=== PATIENT | male | born 1965 | race Caucasian/White ===

== ENCOUNTER 2017-11-15 06:45 | Inpatient (IN) | payer MEDICAID ==
[~2017-11-15] VITALS: Ht 182.8 cm; Wt 151.1 kg
[2017-11-15] VITALS (8 sets, daily range): BP systolic 105–172; BP diastolic 58–103
--- NOTE | ~2017-11-15 | EKG ---
[place], [place] ELECTROCARDIOGRAM REPORT NAME: PERLITA TEJEDA UNIT #: [id number] ROOM: 415 DOCTOR: LEATHA DRAFT REPORT BIRTHDATE: [birth year] [facility] Test Date: 2017-11-17 Test Time: 04:18:18 Pat Name: PERLITA TEJEDA Department: Room: 415 2 Gender: M Ux Lead: Desi Cunningham : 1965 Requested By: MICHEL MURRAY Order Number: [id number] Reading MD: Tye Cortez MD Measurements Intervals [place] Rate: 98 P: 66 TX: 145 QRS: 81 QRSD: 140 T: 39 QT: 360 QTc: 460 Interpretive Statements Sinus rhythm Right bundle branch block Compared to ECG 11/15/2017 07:53:58 Sinus tachycardia no longer present Left posterior fascicular block no longer present Electronically Signed On 11-17-2017 19:54:41 PDT by Tye Cortez MD CM:EKGRPT:ELECTROCARDIOGRAM REPORT [id number] MICHEL CHIN DRAFT REPORT MICHEL MURRAY DO
--- NOTE | ~2017-11-15 | EKG ---
[place], [place] ELECTROCARDIOGRAM REPORT NAME: PERLITA TEJEDA UNIT #: [id number] ROOM: 415 DOCTOR: LEATHA DRAFT REPORT BIRTHDATE: [birth year] [facility] Test Date: 2017-11-15 Test Time: 07:53:58 Pat Name: PERLITA TEJEDA Department: Room: 415 Gender: M Surgical Asst: : 1965 Requested By: MELVIN ROBERTS Order Number: [id number] Reading MD: Ruby Barrett MD Measurements Intervals [place] Rate: 103 P: 77 NE: 145 QRS: 92 QRSD: 149 T: 28 QT: 352 QTc: 461 Interpretive Statements Sinus tachycardia RBBB and LPFB Lateral infarct, acute Baseline wander in lead(s) V4,V5 Electronically Signed On 11-16-2017 10:45:56 PDT by Ruby Barrett MD CM:EKGRPT:ELECTROCARDIOGRAM REPORT [id number] MELVIN CHIN DRAFT REPORT MELVIN ROBERTS DO
[2017-11-15 07:43] LABS: BASO # 0.1 10*3/uL (0.0-0.1); BASO % 0.5 % (0.0-1.0); EOS # 0.2 10*3/uL (0.0-0.4); EOS % 0.9 % (1.0-4.0); HEMATOCRIT 53.3 % (42.0-52.0); HEMOGLOBIN 17.4 g/dl (14.0-18.0); LYMPH # 3.5 10*3/uL (1.3-4.4); LYMPH % 20.3 % (27.0-41.0); MEAN CELL VOLUME 91.1 fl (80.0-94.0); MEAN CORPUSCULAR HGB 29.7 pg (27.0-31.0); MEAN CORPUSCULAR HGB CONC 32.6 g/dl (33.0-37.0); MEAN PLATELET VOLUME 9.6 fl (9.6-12.3); MONO # 1.1 10*3/uL (0.1-1.0); MONO % 6.2 % (3.0-9.0); NEUT # 12.3 10*3/uL (2.3-7.9); NEUT % 71.7 % (47.0-73.0); PLATELET COUNT AUTOMATED 288 10*3/uL (130-400); RED BLOOD COUNT 5.85 10*6/uL (4.50-5.90); RED CELL DISTRI WIDTH 12.9 % (0-14.5); WHITE BLOOD COUNT 17.2 10*3/uL (4.8-10.8)
[2017-11-15 07:51] LABS: ACT PARTIAL THROMBO TIME 22.8 SECONDS (20.8-31.5)
[2017-11-15 07:59] LABS: ALKALINE PHOSPHATASE 112 U/L (45-117); BUN 14 mg/dl (7-24); CHLORIDE 107 mmol/L (98-107); CREATININE 1.02 mg/dL (0.70-1.30); LIPASE 95 U/L (73-393); POTASSIUM 3.9 mmol/L (3.5-5.1); SGOT/AST 11 IU/L (3-35); SGPT/ALT 22 U/L (12-78); SODIUM 142 mmol/L (136-145); TOTAL PROTEIN 8.6 gm/dL (6.4-8.2)
[2017-11-15 08:00] LABS: TROPONIN I < 0.015 ng/ml (<0.045)
[2017-11-15] MEDS ORDERED: ALEVE220 MG PO (09:32)
[2017-11-16] VITALS: BP 147/74
[2017-11-16 06:11] LABS: BASO % 0.1 % (0.0-1.0); LYMPH # 1.5 10*3/uL (1.3-4.4); LYMPH % 8.3 % (27.0-41.0); MEAN CELL VOLUME 90.7 fl (80.0-94.0); MEAN CORPUSCULAR HGB 29.1 pg (27.0-31.0); MONO # 0.8 10*3/uL (0.1-1.0); MONO % 4.4 % (3.0-9.0); NEUT # 15.6 10*3/uL (2.3-7.9); NEUT % 86.5 % (47.0-73.0); PLATELET COUNT AUTOMATED 255 10*3/uL (130-400); RED BLOOD COUNT 4.85 10*6/uL (4.50-5.90); RED CELL DISTRI WIDTH 13.1 % (0-14.5)
[2017-11-16 06:18] LABS: HEMOGLOBIN 14.1 g/dl (14.0-18.0)
[2017-11-16 06:44] LABS: ALBUMIN 3.2 gm/dl (3.1-4.5); ALKALINE PHOSPHATASE 88 U/L (45-117); BUN 13 mg/dl (7-24); CHLORIDE 108 mmol/L (98-107); POTASSIUM 3.9 mmol/L (3.5-5.1); SODIUM 141 mmol/L (136-145)
[2017-11-16 06:51] LABS: CHOLESTEROL 181 mg/dL (<200); CREATININE 0.82 mg/dL (0.70-1.30); FREE T4 0.83 ng/dl (0.76-1.46); HDL CHOLESTEROL 35 mg/dl (40-60); LDL CHOLESTEROL 133 mg/dL (9-159); PHOSPHOROUS 2.6 mg/dL (2.5-4.9); SGOT/AST 6 IU/L (3-35); SGPT/ALT 17 U/L (12-78); THYROID STIM HORMONE (HS) 0.335 uIU/ml (0.358-4.75); TOTAL PROTEIN 6.9 gm/dL (6.4-8.2); TRIGLYCERIDES 65 mg/dl (<150); VLDL CHOLESTEROL 13 mg/dL (6-40)
[2017-11-16 07:38] LABS: VITAMIN D, 25-HYDROXY 14.4 ng/mL (30-100)
[2017-11-16 08:00] VITALS: BP 152/89
[2017-11-16 12:00] VITALS: BP 135/86
[2017-11-16 16:00] VITALS: BP 153/77
[2017-11-16 20:00] VITALS: BP 154/62
[2017-11-17] VITALS: BP 155/89
[2017-11-17] MEDS ORDERED: ALEVE220 MG PO (04:13)
[2017-11-17 06:33] LABS: BASO % 0.2 % (0.0-1.0); EOS % 0.1 % (1.0-4.0); HEMATOCRIT 45.8 % (42.0-52.0); HEMOGLOBIN 14.7 g/dl (14.0-18.0); LYMPH # 1.3 10*3/uL (1.3-4.4); LYMPH % 7.3 % (27.0-41.0); MEAN CELL VOLUME 91.8 fl (80.0-94.0); MEAN CORPUSCULAR HGB 29.5 pg (27.0-31.0); MEAN CORPUSCULAR HGB CONC 32.1 g/dl (33.0-37.0); MEAN PLATELET VOLUME 10.3 fl (9.6-12.3); MONO # 0.6 10*3/uL (0.1-1.0); MONO % 3.6 % (3.0-9.0); NEUT # 15.7 10*3/uL (2.3-7.9); NEUT % 87.8 % (47.0-73.0); PLATELET COUNT AUTOMATED 290 10*3/uL (130-400); RED BLOOD COUNT 4.99 10*6/uL (4.50-5.90); RED CELL DISTRI WIDTH 13.2 % (0-14.5); WHITE BLOOD COUNT 17.9 10*3/uL (4.8-10.8)
[2017-11-17 06:44] LABS: BUN 13 mg/dl (7-24); CHLORIDE 106 mmol/L (98-107); CREATININE 0.84 mg/dL (0.70-1.30); POTASSIUM 3.9 mmol/L (3.5-5.1); SODIUM 140 mmol/L (136-145)
[2017-11-17 08:00] VITALS: BP 152/82; BP 160/94
[2017-11-17 12:00] VITALS: BP 147/84; BP 160/88
[2017-11-17 16:00] VITALS: BP 138/98
[2017-11-17 20:00] VITALS: BP 148/86
[2017-11-18 00:15] VITALS: BP 150/88
[2017-11-18 08:00] VITALS: BP 158/92
[2017-11-18 12:00] VITALS: BP 175/97
[2017-11-18 16:00] VITALS: BP 172/96
[2017-11-18 20:00] VITALS: BP 164/88; BP 166/109
[2017-11-19] VITALS (7 sets, daily range): BP systolic 150–180; BP diastolic 80–110
[2017-11-20] VITALS: BP 159/98
[2017-11-20 05:30] VITALS: BP 152/98
[2017-11-20 06:28] LABS: HEMOGLOBIN 15.5 g/dl (14.0-18.0); MEAN CELL VOLUME 91.9 fl (80.0-94.0); MEAN CORPUSCULAR HGB 29.1 pg (27.0-31.0); MEAN CORPUSCULAR HGB CONC 31.6 g/dl (33.0-37.0); MEAN PLATELET VOLUME 9.3 fl (9.6-12.3); PLATELET COUNT AUTOMATED 296 10*3/uL (130-400); RED BLOOD COUNT 5.33 10*6/uL (4.50-5.90); RED CELL DISTRI WIDTH 13.2 % (0-14.5); WHITE BLOOD COUNT 15.4 10*3/uL (4.8-10.8)
[2017-11-20 06:47] LABS: CREATININE 0.88 mg/dL (0.70-1.30)
[2017-11-20 07:15] LABS: ATYPICAL LYMPHS 1 % (0-0); TOTAL CELLS COUNTED 100 #CELLS
[2017-11-20 07:16] LABS: PLATELET SUFFICIENCY NORMAL (NORMAL)
[2017-11-20] MEDS ORDERED: PROAIR HFA8.5 GM INH (09:55)
[2017-11-20] MEDS ORDERED: METOPROLOL SUCC25 M2 PO (09:55)
[2017-11-20] MEDS ORDERED: PREDNISONE10 MG PO (09:55)
[2017-11-20] MEDS ORDERED: VITAMIN D-32000 UNIT PO (09:55)
[2017-11-20] MEDS ORDERED: LEVAQUIN750 M1 PO (09:55)
[2017-11-20] MEDS ORDERED: LISINOPRIL10 M1 PO (09:55)
== END 2017-11-20 13:18 | disposition home or self-care (01) | DRG 871 ==
LOC: ED 06:45 → EDHOLD 08:50 → 4E 08:50
PROVIDERS: Emergency Medicine; Internal Medicine; Student in an Organized Health Care Education/Training Program
DX: A41.9 Sepsis, unspecified organism (principal); J18.9 Pneumonia, unspecified organism; J96.01 Acute respiratory failure with hypoxia; J44.1 Chronic obstructive pulmonary disease with (acute) exacerbation; J44.0 Chronic obstructive pulmonary disease with (acute) lower respiratory infection; Z68.41 Body mass index [BMI] 40.0-44.9, adult; R73.9 Hyperglycemia, unspecified; R07.9 Chest pain, unspecified; D72.823 Leukemoid reaction; M1A.9XX0 Chronic gout, unspecified, without tophus (tophi); E66.01 Morbid (severe) obesity due to excess calories; R91.8 Other nonspecific abnormal finding of lung field; E83.41 Hypermagnesemia; F17.210 Nicotine dependence, cigarettes, uncomplicated; R79.82 Elevated C-reactive protein (CRP); I16.0 Hypertensive urgency; F12.90 Cannabis use, unspecified, uncomplicated; I10 Essential (primary) hypertension; Z71.6 Tobacco abuse counseling; Z82.49 Family history of ischemic heart disease and other diseases of the circulatory system